=== PATIENT | male | born 1975 | race Caucasian/White ===

== ENCOUNTER 2019-09-12 09:54 | Emergency (ER) | payer MEDICAID ==
--- NOTE | 2019-09-12 10:36 | EDM.PDOC ---
ED HPI GENERAL MEDICAL PROBLEM - General Chief Complaint: Abdominal Pain Stated Complaint: ABD PAIN Time Seen by Provider: 09/12/19 10:15 Source of Information: Reports: Patient, Old Records, RN History Limitations: Reports: No Limitations - History of Present Illness INITIAL COMMENTS - FREE TEXT/NARRATIVE: 44 yo male presented to the ER today with vague abdominal pain that began yesterday. Associated symptoms include anorexia. His last BM was yesterday and it was normal. No urinary sx's. No nausea or fever. No pHx of any abdominal surgeries. Today he has a sense that the pain is more RLQ and is a little concerned about appendicitis. He called the clinic and mentioned this and was told to come to the ER. He has not eaten much since lunch yesterday, and when he did he did not feel worse. Coughing or moving around does not make his pain worse. No self tx prior to arrival. He missed last night's dose of his BP meds. Onset: Gradual Onset Date: 09/11/19 Duration: Day(s): (1+), Constant Location: Reports: Abdomen Quality: Reports: Dull, Other (fullness) Severity: Mild Improves with: Reports: None Worsens with: Reports: Other (unknown) Context: Reports: Other (See HPI) Associated Symptoms: Reports: Loss of Appetite. Denies: Fever/Chills, Nausea/ Vomiting Treatments CAMPUS SAFETY OFFICER: Reports: Other (see below) (none) Abdomen Pain Score (Numeric/FACES): 1 - Related Data Allergies Allergy/AdvReac Type Severity Reaction Status Date / Time No Known Allergies Allergy Verified 09/12/19 10:09 Home Meds: Home Meds Metoprolol Succinate [Toprol XL] 25 mg PO DAILY 09/12/19 [History] Sulfamethoxazole/Trimethoprim [Sulfamethoxazole-Tmp Ds Tablet] 1 tab PO ASDIRECTED 09/12/19 [History] lisinopriL [Lisinopril] 30 mg PO DAILY 09/12/19 [History] Past Medical History HEENT History: Reports: Impaired Vision Musculoskeletal History: Reports: Back Pain, Chronic, Fracture - Past Surgical History HEENT Surgical History: Reports: Eye Surgery Other Musculoskeletal Surgeries/Procedures:: back surgery Social & Family History - Tobacco Use Smoking Status *Q: Never Smoker - Caffeine Use Caffeine Use: Reports: Soda, Tea - Alcohol Use Days Per Week of Alcohol Use: 7 Number of Drinks Per Day: 5 Total Drinks Per Week: 35 - Recreational Drug Use Recreational Drug Use: No ED ROS GENERAL - Review of Systems Review Of Systems: See Below Constitutional: Reports: No Symptoms HEENT: Reports: No Symptoms Respiratory: Reports: No Symptoms Cardiovascular: Reports: No Symptoms GI/Abdominal: Reports: Abdominal Pain, Anorexia, Decreased Appetite. Denies: Black Stool, Bloody Stool, Constipation, Diarrhea, Distension, Flatus, Hematemesis, Hematochezia, Melena, Nausea, Vomiting : Reports: No Symptoms Musculoskeletal: Reports: No Symptoms Skin: Reports: No Symptoms Neurological: Reports: No Symptoms ED EXAM, GI/ABD - Physical Exam Exam: See Below Exam Limited By: No Limitations General Appearance: Alert, WD/WN, No Apparent Distress Eyes: Bilateral: Normal Appearance Ears: Normal External Exam, Normal Canal, Hearing Grossly Normal Nose: Normal Inspection, No Blood Throat/Mouth: Normal Inspection, Normal Lips, Normal Oropharynx, Normal Voice, No Airway Compromise Head: Atraumatic, Normocephalic Neck: Normal Inspection Respiratory/Chest: No Respiratory Distress, Lungs Clear, Normal Breath Sounds, No Accessory Muscle Use Cardiovascular: Regular Rate, Rhythm, No Edema GI/Abdominal Exam: Soft, No Distention, Tender (McBurney's Pt), Abnormal Bowel Sounds (slightly decreased), Other (no increase in his pain with jumping up and down here in the ER.). No: Non-Tender, Distended, Guarding, Rigid, Rebound Back Exam: Normal Inspection. No: CVA Tenderness (R), CVA Tenderness (L) Extremities: Normal Inspection, Normal Range of Motion, Non-Tender, No Pedal Edema. No: Pedal Edema Neurological: Alert, Oriented, CN II-XII Intact, Normal Cognition, No Motor/ Sensory Deficits Psychiatric: Normal Affect, Normal Mood Skin Exam: Warm, Dry, Intact, Normal Color, No Rash Course - Vital Signs Last Recorded V/S: Last Vital Signs Temp 36.3 C 09/12/19 10:11 Pulse 99 09/12/19 10:11 Resp 16 09/12/19 10:11 BP 183/116 H 09/12/19 10:11 Pulse Ox 98 09/12/19 10:11 - Orders/Labs/Meds Orders: Active Orders 24 hr Category Date Time Status Iopamidol [Isovue-300 (61%)] Med 09/12/19 11:29 Active 128 ml IV . DIRECTED PRN Sodium Chloride 0.9% [Saline Flush] Med 09/12/19 11:17 Active 10 ml FLUSH ASDIRECTED PRN Saline Lock Insert [OM.PC] Routine Oth 09/12/19 11:17 Ordered Medication Orders Iopamidol (Isovue-300 (61%)) 128 ml IV . DIRECTED PRN PRN Reason: RADIOLOGY EXAM Stop: 09/13/19 11:30 Last Admin: 09/12/19 11:38 Dose: 128 ml Sodium Chloride (Saline Flush) 10 ml FLUSH ASDIRECTED PRN PRN Reason: Keep Vein Open Last Admin: 09/12/19 11:25 Dose: 10 ml Labs: Laboratory Tests 09/12/19 09/12/19 Range/Units 10:49 10:49 WBC 7.2 (4.5-11.0) K/uL RBC 4.64 (4.30-5.90) M/uL Hgb 14.2 (12.0-15.0) g/dL Hct 42.9 (40.0-54.0) % MCV 93 (80-98) fL MCH 31 (27-31) pg MCHC 33 (32-36) % Plt Count 218 (150-400) K/uL C-Reactive Protein 3.60 H (0.0-0.3) mg/dL Meds: Medications Generic Name Dose Route Start Last Admin Trade Name Freq PRN Reason Stop Dose Admin Iopamidol 128 ml 09/12/19 11:29 09/12/19 11:38 Isovue-300 (61%) IV 09/13/19 11:30 128 ml . DIRECTED PRN Administration RADIOLOGY EXAM Sodium Chloride 10 ml 09/12/19 11:17 09/12/19 11:25 Saline Flush FLUSH 10 ml ASDIRECTED PRN Administration Keep Vein Open Discontinued Medications Generic Name Dose Route Start Last Admin Trade Name Freq PRN Reason Stop Dose Admin Sodium Chloride 79 mls @ 3.5 mls/sec 09/12/19 11:30 09/12/19 11:38 Normal Saline IV 09/12/19 11:31 3.5 mls/sec ASDIRECTED REHANA Administration Sodium Chloride 10 ml 09/12/19 11:29 09/12/19 11:38 Saline Flush FLUSH 09/12/19 11:30 10 ml ONETIME ONE Administration - Radiology Interpretation Free Text/Narrative:: Flat/upright abdominal X-rays-neg CT abd/pelvis with IV contrast-mild thickening of the colon wall Departure - Departure Time of Disposition: 12:15 Disposition: Home, Self-Care 01 Condition: Fair Clinical Impression: Colitis - Discharge Information *PRESCRIPTION DRUG MONITORING PROGRAM REVIEWED*: Not Applicable *COPY OF PRESCRIPTION DRUG MONITORING REPORT IN PATIENT CARLOS ENRIQUE: Not Applicable Referrals: PCP,None [Primary Care Provider] - Forms: ED Department Discharge Additional Instructions: Acetaminophen up to 1000 mg every 6 hrs as needed for pain relief. Clear liquids and a light diet today as tolerated. Advance diet slowly as tolerated. Recheck if worse. Sepsis Event Note - Evaluation Sepsis Screening Result: No Definite Risk - Focused Exam Vital Signs: Vital Signs Temp Pulse Resp BP Pulse Ox 09/12/19 10:11 36.3 C 99 16 183/116 H 98 09/12/19 10:07 36.3 C 99 16 183/116 H 98 Date Exam was Performed: 09/12/19 Time Exam was Performed: 12:15 - My Orders Last 24 Hours: My Active Orders 09/12/19 11:17 Sodium Chloride 0.9% [Saline Flush] 10 ml FLUSH ASDIRECTED PRN Saline Lock Insert [OM.PC] Routine 09/12/19 11:29 Iopamidol [Isovue-300 (61%)] 128 ml IV . DIRECTED PRN - Assessment/Plan Last 24 Hours: My Active Orders 09/12/19 11:17 Sodium Chloride 0.9% [Saline Flush] 10 ml FLUSH ASDIRECTED PRN Saline Lock Insert [OM.PC] Routine 09/12/19 11:29 Iopamidol [Isovue-300 (61%)] 128 ml IV . DIRECTED PRN
[2019-09-12] MEDS ORDERED: Sodium Chloride 0.9% 10 ML Syringe FLUSH PRN (11:17)
[2019-09-12] MEDS ORDERED: Sodium Chloride 0.9% 10 ML Syringe FLUSH ONE (11:29)
[2019-09-12] MEDS ORDERED: Iopamidol 612 MG/ML 150 ML Bottle IV PRN (11:29)
--- NOTE | 2019-09-12 12:00 | CR ---
Abdomen 2V AP Flat Upright CLINICAL HISTORY: Abdominal pain FINDINGS: Flat and upright views of the abdomen show no free intraperitoneal air. Intestinal gas pattern is nonacute. No definite urinary calculi are identified IMPRESSION: Nonacute intestinal gas pattern
--- NOTE | 2019-09-12 12:14 | CT ---
Abdomen Pelvis w Cont CLINICAL HISTORY: Right lower quadrant pain, elevated CRP COMPARISON: None. TECHNIQUE: Axial tomographic images are obtained from the dome of the diaphragm to the pubic symphysis without IV contrast enhancement. No oral contrast was used. Auto dosage reduction and iterative reconstruction techniques employed. FINDINGS: The lung bases are clear. The liver shows no mass or biliary dilatation. The gallbladder has a normal appearance. The spleen has a normal size and shape. The pancreas shows no mass or inflammatory change. The adrenal glands appear normal bilaterally. The right kidney contains a 2.1 x 2.2 cm slightly irregular complex cyst. There is a 4 mm cyst on the left kidney. There is no hydronephrosis. Ureters have a normal course and caliber. Bladder has a normal contour. The aorta has a normal contour. There is no suspicious retroperitoneal adenopathy. The small intestinal gas pattern is nonacute. There is questionable mild generalized the thickening of the colon some of this may be bowel content peristalsis. The appendix is not definitively identified. There is no inflammation in the mesentery of the right lower quadrant. IMPRESSION: Questionable mild diffuse colon thickening suggesting some mucosal edema. This may represent a pancolitis. Clinical correlation necessary No mass or focal inflammatory change
== END 2019-09-12 13:01 | disposition home or self-care (01) ==
LOC: JP.ED 09:54
DX: K52.9 Noninfective gastroenteritis and colitis, unspecified (principal); Z79.899 Other long term (current) drug therapy
CPT/HCPCS: 36415; 74019; 74177; 85027; 86140; 99284; J7050; Q9967